=== PATIENT | female | born 1975 | race Caucasian/White ===

== ENCOUNTER 2019-07-20 09:32 | Emergency (ER) | payer SELFPAY ==
[2019-07-20 09:44] VITALS: BP 107/62; PULSE 73; RESP 20; TEMP 36.9; O2SAT 99; BMI 19.2
--- NOTE | 2019-07-20 09:52 | ED_ITS ---
Entered by Abby Hernandez, acting as scribe for Skip Haddad MD HPI - Abdominal Pain General: Chief Complaint: Abdominal Pain Stated Complaint: Abd pain Time Seen by Provider: 07/20/19 09:38 Source: patient Mode of arrival: ambulatory Limitations: no limitations History of Present Illness: HPI narrative: 44 yo female presents with abdomen pain. pt states this started yesterday. pt has had nausea and vomiting. pt stated the pain worsens by eating or movement and nothing makes this better. pt has a HX of bowel obstructions. pt's last bowel movement was 3 days ago. pt denies any other symptoms at this time. MD elicited complaint: abdominal pain Onset (ago): day(s) Pain Consistency: constant Location: Epigastric Severity: moderate Radiation: LLQ, RLQ and epigastric Exacerbating factors: eating and movement Relieving factors: nothing Associated Symptoms: Reports change in bowel habits (3 days ago), nausea and vomiting; Denies chills, dysuria and fever(s) Related Data: Date of Last Menstrual Period: 07/07/19 Review of Systems Const: Denies: fever, chills, body aches or change in appetite Eyes: Denies: blurry vision or eye discomfort ENMT: Denies: throat pain or dental pain Card: Denies: chest pain Resp: Denies: shortness of breath GI: Reports: nausea, vomiting and change in bowel habits (3 days ago) : Denies: painful urination Musc: Denies: neck pain or back pain Skin/Breast: Denies: rash Neuro: Denies: headache Psych: Denies: depression Goldy/Lymph: Denies: easy bruising All/Imm: Denies: hives PFSH ED PFSH: Statuses (acute, chronic, etc) shown below reflect problem list status as previously entered and may not be historically accurate Medical History (Updated 07/20/19 @ 11:33 by Skip Haddad MD) History of small bowel obstruction (Acute) Social History Smoking and tobacco status: current every day smoker Female Reproductive History: Date of last menstrual period: 07/07/19 Physical Exam Const: COMMON NORMALS: no apparent distress, oriented x3 and healthy appearing HENMT: COMMON NORMALS: normocephalic and head/scalp atraumatic HEAD & SCALP: normocephalic and atraumatic Eye: COMMON NORMALS: PERRL and EOMs intact bilaterally PUPIL: Yes PERRL Neck/C-Spine: COMMON NORMALS: full ROM and supple Chest: COMMONS NORMALS: inspection of chest normal and palpation of chest normal Resp: COMMON NORMALS: normal respiratory effort, no retractions, no use of accessory muscles and clear to auscultation bilaterally AUSCULTATION: clear to auscultation bilaterally Cardio: COMMON NORMALS: regular rate, regular rhythm and no murmurs RATE: regular rate RHYTHM: regular rhythm Extremity: COMMON NORMALS: normal to inspection and full ROM Neuro: COMMON NORMALS: oriented x3, moves all extremities and no focal motor deficits Psych: COMMON NORMALS: mental status grossly normal, thought process normal and cooperative THOUGHT PROCESS: normal thought process Skin: COMMON NORMALS: no rashes or lesions noted and no wounds GENERAL SKIN EXAM: no rashes or lesions noted Course Vital Signs: Vital signs: Vital Signs Temperature 98.6 F 07/20/19 11:11 Pulse Rate 75 07/20/19 11:36 Respiratory Rate 14 07/20/19 11:36 Blood Pressure 148/75 07/20/19 11:36 Pulse Oximetry 98 07/20/19 11:36 MDM - Abdominal Pain MDM Narrative: Medical decision making narrative: Patient presents with abdominal pain that is likely reflux. Her pain was resolved with a GI cocktail. Her lab work here is normal and she has no signs of cholecystitis. Patient is stable for discharge and will prescribe her Prilosec. She is to follow-up with her primary care doctor in 3 to 5 days and return if worsening. Lab Data: Labs: Lab Results 07/20/19 07/20/19 07/20/19 Range/Units 09:57 09:57 10:12 WBC 4.9 (4.0-10.0) 10^3/ uL RBC 4.54 (4.1-5.3) 10^6/u L Hgb 13.0 (11.5-15.3) g/dL Hct 40.3 (37.0-47.0) % MCV 88.8 (81-99) fL MCH 28.6 (28.0-34.0) pg MCHC 32.3 (30.0-36.0) g/dL RDW 14.1 (12.1-15.1) % Plt Count 243 (130-400) 10^3/c mm MPV 9.8 (7.4-10.4) fL Neut % (Auto) 56.7 % Lymph % (Auto) 30.8 % Weld % (Auto) 9.3 % Eos % (Auto) 1.4 % Baso % (Auto) 1.6 % Neut # (Auto) 2.8 (1.8-7.7) 10^3/u L Lymph # (Auto) 1.5 (0.8-4.8) 10^3/u L Weld # (Auto) 0.5 (0.2-0.9) 10^3/u L Eos # (Auto) 0.1 (0.0-0.8) 10^3/u L Baso # (Auto) 0.1 (0.0-0.1) 10^3/u L Nucleated RBC % (a uto) 0 % Nucleated RBCs # 0.0 /100WBC Sodium 141 (136-145) mmol/L Potassium 4.1 (3.5-5.1) mmol/L Chloride 105 (98-107) mmol/L Carbon Dioxide 24 (22-29) mmol/L Anion Gap 16.1 (5-19) BUN 17 (6-20) mg/dL Creatinine 0.8 (0.5-0.9) mg/dL GFR Calculation 77.6 L (90-130) mL/min Glucose 98 (74-109) mg/dL Calcium 10.5 (8.5-10.5) mg/dL Total Bilirubin 0.4 (0.15-1.2) mg/dL AST 15 (0-32) U/L ALT 9 (0-33) U/L Alkaline Phosphata se 55 (35-105) IU/L Total Protein 7.8 (6.6-8.7) g/dL Albumin 5.0 (3.5-5.2) g/dL Globulin 2.8 (1.3-4.6) g/dL Lipase 14 (13-60) U/L HCG, Qual Negative (Negative) Urine Color (Yellow) Urine Appearance (CLEAR) Urine pH (5-7) Ur Specific Gravit y (1.005-1.030) Urine Protein (Negative) Urine Glucose (UA) (Normal) Urine Ketones (Negative) Urine Occult Blood (Negative) Urine Nitrate (Negative) Urine Bilirubin (NEGATIVE) Urine Urobilinogen (Negative) mg/dL Ur Leukocyte Mickie ase (Negative) Urine RBC (0-2) /hpf Urine WBC (0-5) /hpf Ur Squamous Epith Cells (0-5) Urine Bacteria (NONE) Hyaline Casts Urine Mucus 07/20/19 Range/Units 10:12 WBC (4.0-10.0) 10^3/ uL RBC (4.1-5.3) 10^6/u L Hgb (11.5-15.3) g/dL Hct (37.0-47.0) % MCV (81-99) fL MCH (28.0-34.0) pg MCHC (30.0-36.0) g/dL RDW (12.1-15.1) % Plt Count (130-400) 10^3/c mm MPV (7.4-10.4) fL Neut % (Auto) % Lymph % (Auto) % Weld % (Auto) % Eos % (Auto) % Baso % (Auto) % Neut # (Auto) (1.8-7.7) 10^3/u L Lymph # (Auto) (0.8-4.8) 10^3/u L Weld # (Auto) (0.2-0.9) 10^3/u L Eos # (Auto) (0.0-0.8) 10^3/u L Baso # (Auto) (0.0-0.1) 10^3/u L Nucleated RBC % (a uto) % Nucleated RBCs # /100WBC Sodium (136-145) mmol/L Potassium (3.5-5.1) mmol/L Chloride (98-107) mmol/L Carbon Dioxide (22-29) mmol/L Anion Gap (5-19) BUN (6-20) mg/dL Creatinine (0.5-0.9) mg/dL GFR Calculation (90-130) mL/min Glucose (74-109) mg/dL Calcium (8.5-10.5) mg/dL Total Bilirubin (0.15-1.2) mg/dL AST (0-32) U/L ALT (0-33) U/L Alkaline Phosphata se (35-105) IU/L Total Protein (6.6-8.7) g/dL Albumin (3.5-5.2) g/dL Globulin (1.3-4.6) g/dL Lipase (13-60) U/L HCG, Qual (Negative) Urine Color Yellow (Yellow) Urine Appearance Sl hazy (CLEAR) Urine pH 5 (5-7) Ur Specific Gravit y 1.020 (1.005-1.030) Urine Protein Neg (Negative) Urine Glucose (UA) Norm (Normal) Urine Ketones 1+ H (Negative) Urine Occult Blood Neg (Negative) Urine Nitrate Negative (Negative) Urine Bilirubin 1+ H (NEGATIVE) Urine Urobilinogen 1 H (Negative) mg/dL Ur Leukocyte Mickie ase 1+ H (Negative) Urine RBC 0-4 H (0-2) /hpf Urine WBC 10-15 H (0-5) /hpf Ur Squamous Epith Cells 15-25 H (0-5) Urine Bacteria 2+ H (NONE) Hyaline Casts Rare Urine Mucus 1+ Discharge Plan Discharge Patient Disposition: Home, Self-Care Clinical Impression: Abdominal pain Qualifiers: Abdominal location: epigastric Qualified Code(s): R10.13 - Epigastric pain Condition: Stable Prescriptions: New Zofran 4 mg tablet 4 mg PO QID PRN (Reason: nausea and vomiting) Qty: 14 RF: 0 Prilosec OTC 20 mg tablet,delayed release (DR/EC) 20 mg PO DAILY Qty: 30 RF: 0 No Action aripiprazole 10 mg tablet 10 mg PO DAILY PRN (Reason: unknown) RF: 0 bupropion HCl 150 mg tablet extended release 24 hr 150 mg PO DAILY PRN (Reason: unknown) RF: 0 melatonin See Rx Instructions .ROUTE .COMPLEX RF: 0 Discharge Orders: Discharge Order (Routine); Ordered 07/20/19 Ordered By: Skip Haddad Discharge Diet: Advance as tolerated Discharge Activity: Resume usual activity Patient Instructions: Abdominal Pain (ED) Stand Alone Forms: Work/School Release Discharge Date/Time: 07/20/19 11:37 Coding Level of Care Code ED Garden Machinery Mechanic for Chg Fwd Exam Problem Focused The documentation recorded by the David st Bridget Annette, accurately reflects the service I personally performed and the decisions made by Boo mckay Korby, MD Jul 20, 2019 09:32
[2019-07-20 10:07] LABS: Basophils # 0.1 10^3/uL (0.0-0.1); Basophils % 1.6 %; Eosinophils # 0.1 10^3/uL (0.0-0.8); Eosinophils % 1.4 %; Hematocrit 40.3 % (37.0-47.0); Lymphocytes # 1.5 10^3/uL (0.8-4.8); Lymphocytes % 30.8 %; Mean Corpuscular HGB Conc 32.3 g/dL (30.0-36.0); Mean Corpuscular Hemoglobin 28.6 pg (28.0-34.0); Mean Corpuscular Volume 88.8 fL (81-99); Mean Platelet Volume 9.8 fL (7.4-10.4); Monocytes # 0.5 10^3/uL (0.2-0.9); Monocytes % 9.3 %; Neutrophils # 2.8 10^3/uL (1.8-7.7); Neutrophils % 56.7 %; Nucleated Red Blood Cells % 0 %; Platelet Count 243 10^3/cmm (130-400); Red Blood Count 4.54 10^6/uL (4.1-5.3); Red Cell Distribution Width 14.1 % (12.1-15.1); White Blood Count 4.9 10^3/uL (4.0-10.0)
[2019-07-20] MEDS: ondansetron 2 mg/ML SDV 2 mL 4 MG IVP (10:08)
--- NOTE | 2019-07-20 10:10 | PC.NURSE ---
Patient to restroom for urine collection
[2019-07-20 10:27] LABS: Alanine Aminotransferase 9 U/L (0-33); Alkaline Phosphatase 55 IU/L (35-105); Anion Gap 16.1 (5-19); Aspartate Amino Transferase 15 U/L (0-32); Blood Urea Nitrogen 17 mg/dL (6-20); Calcium 10.5 mg/dL (8.5-10.5); Carbon Dioxide 24 mmol/L (22-29); Chloride 105 mmol/L (98-107); Globulin 2.8 g/dL (1.3-4.6); Glomerular Filtration Rate 77.6 mL/min (90-130); Glucose 98 mg/dL (74-109); Lipase 14 U/L (13-60); Potassium 4.1 mmol/L (3.5-5.1); Sodium 141 mmol/L (136-145); Total Bilirubin 0.4 mg/dL (0.15-1.2); Total Protein 7.8 g/dL (6.6-8.7)
[2019-07-20 10:49] LABS: HCG Qualitative Urine. Negative (Negative)
[2019-07-20 10:58] LABS: Add Urine Microscopic? YES; Bilirubin Urine 1+ (NEGATIVE); Blood Urine Neg (Negative); Glucose Urine UA Norm (Normal); Ketones Urine 1+ (Negative); Leukocyte Esterase Urine 1+ (Negative); Nitrate Urine Negative (Negative); Protein Urine Neg (Negative); Urine Appearance SL Hazy (CLEAR); Urine Color Yellow (Yellow); Urobilinogen Urine 1 mg/dL (Negative); pH Urine 5 (5-7)
[2019-07-20 11:10] LABS: Hyaline Casts Urine RARE; Mucus Urine 1+
[2019-07-20 11:11] VITALS: BP 100/68; PULSE 66; TEMP 37; O2SAT 99
[2019-07-20 11:11] LABS: Bacteria Urine 2+; RBC Urine 0-4 /hpf (0-2); Squamous Epithelial Cell Urine 15-25 (0-5)
[2019-07-20 11:12] LABS: Add Urine Culture? No
[2019-07-20 11:36] VITALS: BP 148/75; PULSE 75; RESP 14; O2SAT 98
== END 2019-07-20 11:37 | disposition home or self-care (01) ==
PROVIDERS: Emergency Provider Emergency Medicine
DX: R10.13 Epigastric pain (principal); F17.210 Nicotine dependence, cigarettes, uncomplicated
CPT/HCPCS: 36415; 80053; 81001; 81025; 83690; 85025; 96374; 99282; 99283; J2405

== ENCOUNTER 2021-12-26 10:37 | Emergency (ER) | payer BC, MEDICAID, SELFPAY ==
[2021-12-26 10:53] VITALS: BP 97/65; PULSE 98; RESP 18; TEMP 36.7; O2SAT 98; BMI 19.8
--- NOTE | 2021-12-26 11:18 | CTR_ITS ---
PROCEDURE INFORMATION: Exam: CT Head Without Contrast Exam date and time: 12/26/2021 12:07 PM Age: 46 years old Clinical indication: Injury or trauma; Fall; Blunt trauma (contusions or hematomas) TECHNIQUE: Imaging protocol: Computed tomography of the head without contrast. Radiation optimization: All CT scans at this facility use at least one of these dose optimization techniques: automated exposure control; mA and/or kV adjustment per patient size (includes targeted exams where dose is matched to clinical indication); or iterative reconstruction. COMPARISON: No relevant prior studies available. RADIATION DOSE METRICS: Total DLP (mGy-cm): 1103.8 FINDINGS: Brain: Normal. No hemorrhage. Unremarkable white matter. No mass effect. Cerebral ventricles: No ventriculomegaly. Paranasal sinuses: Visualized sinuses are unremarkable. No fluid levels. Mastoid air cells: Visualized mastoid air cells are well aerated. Bones/joints: Unremarkable. No acute fracture. Soft tissues: Unremarkable. CT/CT head wo con* [id number] IMPRESSION: No acute intracranial abnormality.
[2021-12-26 11:34] LABS: Basophils # 0.1 10^3/uL (0.0-0.1); Basophils % 1.2 %; Eosinophils % 0.7 %; Hematocrit 38.1 % (37.0-47.0); Hemoglobin 12.4 g/dL (11.5-15.3); Lymphocytes # 1.2 10^3/uL (0.8-4.8); Lymphocytes % 21.4 %; Mean Corpuscular HGB Conc 32.5 g/dL (30.0-36.0); Mean Corpuscular Hemoglobin 28.2 pg (28.0-34.0); Mean Corpuscular Volume 86.8 fl (81-99); Monocytes # 0.5 10^3/uL (0.2-0.9); Neutrophils # 3.88 10^3/uL (1.8-7.7); Neutrophils % 68.5 %; Nucleated Red Blood Cells % 0 %; Platelet Count 220 10^3/cmm (130-400); Red Blood Count 4.39 10^6/uL (4.1-5.3); Red Cell Distribution Width 14.9 % (12.1-15.1); White Blood Count 5.7 10^3/uL (4.0-10.0)
[2021-12-26 11:51] VITALS: BP 104/68; BP 107/71; BP 113/63; PULSE 72; PULSE 73; PULSE 82
[2021-12-26] MEDS: sodium chloride 0.9% 1,000 ML 999 ML IV ×2 (11:51→15:40)
[2021-12-26 11:59] LABS: Alanine Aminotransferase < 5 U/L (0-33); Albumin Level 4.3 g/dL (3.5-5.2); Alkaline Phosphatase 54 IU/L (35-105); Anion Gap 16.4 (5-19); Aspartate Amino Transferase 10 U/L (0-32); Blood Urea Nitrogen 16 mg/dL (6-20); Calcium 9.3 mg/dL (8.5-10.5); Carbon Dioxide 20 mmol/L (22-29); Chloride 104 mmol/L (98-107); Globulin 2.7 g/dL (1.3-4.6); Glomerular Filtration Rate 107.2 mL/min (90-130); Glucose 79 mg/dL (65-115); Lipase 13 U/L (13-60); Osmolality Calculated 284 mOsm/kg (285-295); Potassium 3.4 mmol/L (3.5-5.1); Sodium 137 mmol/L (136-145); Total Bilirubin 0.4 mg/dL (0.15-1.2)
[2021-12-26 12:00] LABS: Troponin(5th) Baseline 6 ng/L (0-10)
--- NOTE | 2021-12-26 12:02 | W.ED.GENADLT ---
HPI - General Adult General: Chief complaint: Syncope Stated complaint: SYNCOPE; FALL Time Seen by Provider: 12/26/21 11:14 History of Present Illness: Patient is a 46-year-old female without any significant past medical history presents emergency room for an episode of syncope which occurred about an hour ago. Patient tells me that since Monday she has been outside in the heat has been feeling lightheaded. Earlier today, patient was walking in the living room when she suddenly passed out. Patient felt palpitation prior to passing out. Patient denies any nausea or vomiting, chest pain, shortness of breath, focal neurological deficits. Patient complains of generalized weakness all over. Patient reports mild cough since earlier today. Patient has no family history of sudden cardiac or history of aneurysm. Patient denies any headache, decreased p.o. intake, diarrhea, melena or hematochezia. No prior history of anemia or syncope in the past. Patient tells me that she found herself on the ground and cannot remember whether she injured her head. The episode of syncope was unwitnessed. Onset: 1 hr ago Duration:once Location:home Severity:moderate Associated symptoms: Reports malaise and palpitations; Deny chest pain, dyspnea, nausea, rash or vomiting Review of Systems Const: Reports: fatigue, malaise and other (+generalized weakness); Denies: fever(s) or chills Eyes: Denies: change in vision ENMT: Denies: mouth pain Card: Reports: palpitations; Denies: chest pain Resp: Denies: dyspnea or non-productive cough GI: Denies: abdominal pain, nausea, vomiting or diarrhea : Denies: dysuria Musc: Denies: extremity pain Skin/Breast: Denies: rash or new lesions Neuro: Reports: other (+syncope and collapse); Denies: weakness in extremities Psych: Reports: other (Normal mood) Goldy/Lymph: Denies: easy bruising PFSH ED PFSH: Medical History History of small bowel obstruction Social History Smoking and tobacco status: current every day smoker cigarettes Years cigarettes smoked: 25 Quit status (tobacco): considering quitting Second hand smoke exposure: Yes Smoking risk assessment/counseling performed?: Yes Tobacco counseling given: counseling >3 minutes Female Reproductive History: Date of last menstrual period: 07/07/19 Physical Exam Const: COMMON NORMALS: alert HENMT: COMMON NORMALS: atraumatic HEAD & SCALP: atraumatic MOUTH: moist mucous membranes not abnormal Eye: COMMON NORMALS: EOMs intact bilaterally and conjunctivae normal CONJUNCTIVA: Yes conjunctivae normal Neck/C-Spine: COMMON NORMALS: full ROM and supple Resp: COMMON NORMALS: normal respiratory effort and clear to auscultation bilaterally AUSCULTATION: clear to auscultation bilaterally Cardio: COMMON NORMALS: regular rate RATE: regular rate GI: COMMON NORMALS: Soft to palpation and non-tender PALPATION: Yes Soft to palpation OTHER: No focal TTP. NO guarding rebound, guarding, rigidity. No CVA tenderness to percussion. Neg Bazan/Neg McBurney's point tenderness, no suprabupic tenderness to palpation. Extremity: COMMON NORMALS: full ROM Neuro: SENSORIUM/ORIENTATION: Yes alert MOTOR EXAM: No Abnormal motor strength present and Other motor observations present (no focal motor deficits) Psych: COMMON NORMALS: speech normal SPEECH: Yes normal speech MOOD & AFFECT: Yes euthymic mood Course Vital Signs: Vital signs: Vital Signs Temperature 98.0 F 12/26/21 10:53 Pulse Rate 65 12/26/21 13:29 Respiratory Rate 18 12/26/21 13:29 Blood Pressure 97/53 12/26/21 13:29 Pulse Oximetry 99 12/26/21 13:29 MDM - General Adult Medical Decision Making []yo patient w/ no PMH presenting to the ED with Syncope in the setting of being out in the sun x 5 days. No association with chest pain, dyspnea, palpitations, or focal neurological deficits. HDS Neuro intact. Fingerstick wnl. Given history, exam and workup, presentation not consistent with seizures given a short time course, no postictal state, no seizure activity. Low suspicion for acute neurologic catastrophes to include ICH given lack of trauma, risk factors for bleeding diathesis, or neurogenic causes of syncope. Low suspicion for vascular catastrophes to include PE, thoracic aortic dissection, AAA rupture. Presentation not consistent with acute life threatening arrhythmia, structural heart disease, electrical conduction abnormalities, or ACS. Workup: EKG, fingerstick, orthostatics, HCG, CBC, CMP, Lipase, UA Intervention: Serial reevaluation, telemetry, PO challenge Findings: EKG: No e/o STEMI. No evidence of Brugada?s sign, delta wave, epsilon wave, significantly prolonged QTc, HOCM or malignant arrhythmia. [2:30pm] On reassessment, patient denies any syncope or near syncope episodes in the ER. Telemetry without any dysrhythmia. Patient has been able to tolerate PO and ambulate in the ER without issues. Given age, limited to no comorbidities, no family hx of SCD, history more consistent with situational/reflex syncope vs orthostatic/decreased fluid intake, patient is unlikely to experience sudden cardiac decompensation at this time and will NOT benefit from inpatient observation/telemetry at this time. Although the incidence of paroxysmal ventricular tachycardia/VF is very unlikely, I instructed the patient to follow up with a PCP and a Academic Success Coordinator for further evaluation of syncope should the patient need it. Disposition: Discharge. Patient is at baseline at this time. Return precautions expressed and understood in person. Advised follow up with a primary care provider or clinic physician in the next 24-48 hours. Given return instructions for any new or concerning symptoms including chest pain, focal neurological deficits, dyspnea, or any new or concerning findings. Lab Data : 12/26/21 11:25 12/26/21 11:[address] 12/26/21 11:18 IMPRESSION: No acute intracranial abnormality. Laboratory Results WBC 5.7 10^3/uL (4.0-10.0) 12/26/21 11:25 RBC 4.39 10^6/uL (4.1-5.3) 12/26/21 11:25 Hgb 12.4 g/dL (11.5-15.3) 12/26/21 11:25 Hct 38.1 % (37.0-47.0) 12/26/21 11:25 MCV 86.8 fl (81-99) 12/26/21 11:25 MCH 28.2 pg (28.0-34.0) 12/26/21 11:25 MCHC 32.5 g/dL (30.0-36.0) 12/26/21 11:25 RDW 14.9 % (12.1-15.1) 12/26/21 11:25 Plt Count 220 10^3/cmm (130-400) 12/26/21 11:25 MPV 10.0 fL (7.4-10.4) 12/26/21 11:25 Neut % (Auto) 68.5 % 12/26/21 11:25 Lymph % (Auto) 21.4 % 12/26/21 11:25 Dane % (Auto) 8.0 % 12/26/21 11:25 Eos % (Auto) 0.7 % 12/26/21 11:25 Baso % (Auto) 1.2 % 12/26/21 11:25 Neut # (Auto) 3.88 10^3/uL (1.8-7.7) 12/26/21 11:25 Lymph # (Auto) 1.2 10^3/uL (0.8-4.8) 12/26/21 11:25 Dane # (Auto) 0.5 10^3/uL (0.2-0.9) 12/26/21 11:25 Eos # (Auto) 0.0 10^3/uL (0.0-0.8) 12/26/21 11:25 Baso # (Auto) 0.1 10^3/uL (0.0-0.1) 12/26/21 11:25 Nucleated RBC % (auto) 0 % 12/26/21 11:25 Nucleated RBCs # 0.0 /100WBC 12/26/21 11:25 Sodium 137 mmol/L (136-145) 12/26/21 11:25 Potassium 3.4 mmol/L (3.5-5.1) L 12/26/21 11:25 Chloride 104 mmol/L (98-107) 12/26/21 11:25 Carbon Dioxide 20 mmol/L (22-29) L 12/26/21 11:25 Anion Gap 16.4 (5-19) 12/26/21 11:25 BUN 16 mg/dL (6-20) 12/26/21 11:25 Creatinine 0.6 mg/dL (0.5-0.9) 12/26/21 11:25 GFR Calculation 107.2 mL/min (90-130) 12/26/21 11:25 Glucose 79 mg/dL (65-115) 12/26/21 11:25 Calculated Osmolality 284 mOsm/kg (285-295) L 12/26/21 11:25 Calcium 9.3 mg/dL (8.5-10.5) 12/26/21 11:25 Total Bilirubin 0.4 mg/dL (0.15-1.2) 12/26/21 11:25 AST 10 U/L (0-32) 12/26/21 11:25 ALT < 5 U/L (0-33) 12/26/21 11:25 Alkaline Phosphatase 54 IU/L (35-105) 12/26/21 11:25 Troponin T Baseline 6 ng/L (0-10) 12/26/21 11:25 Troponin T 120 Minute 6.00 ng/L (0-10) 12/26/21 13:01 Delta Troponin T 0 ABS# (0-10) 12/26/21 13:01 Total Protein 7.0 g/dL (6.6-8.7) 12/26/21 11:25 Albumin 4.3 g/dL (3.5-5.2) 12/26/21 11:25 Globulin 2.7 g/dL (1.3-4.6) 12/26/21 11:25 Lipase 13 U/L (13-60) 12/26/21 11:25 HCG, Qual Negative (Negative) 12/26/21 14:32 Imaging Data Other Imaging: Radiologist's impression: Launch?Image [address] [address] [address] Scan Report Signed Patient: Shanae Quispe Unit #: [id number] : 1975 Age/Sex: 46 / F ADM Date: 12/26/21 Loc: ER Room/Bed: Attending Dr: Ordering Provider/Ordering MD: Stacy Guy MD Date of Service: 12/26/21 Procedure(s): CT head wo con* [id number] Accession Number(s): [id number] Report Number: [id number] PROCEDURE INFORMATION: Exam: CT Head Without Contrast Exam date and time: 12/26/2021 12:07 PM Age: 46 years old Clinical indication: Injury or trauma; Fall; Blunt trauma (contusions or hematomas) TECHNIQUE: Imaging protocol: Computed tomography of the head without contrast. Radiation optimization: All CT scans at this facility use at least one of these dose optimization techniques: automated exposure control; mA and/or kV adjustment per patient size (includes targeted exams where dose is matched to clinical indication); or iterative reconstruction. COMPARISON: No relevant prior studies available. RADIATION DOSE METRICS: Total DLP (mGy-cm): 1103.8 FINDINGS: Brain: Normal. No hemorrhage. Unremarkable white matter. No mass effect. Cerebral ventricles: No ventriculomegaly. Paranasal sinuses: Visualized sinuses are unremarkable. No fluid levels. Mastoid air cells: Visualized mastoid air cells are well aerated. Bones/joints: Unremarkable. No acute fracture. Soft tissues: Unremarkable. CT/CT head wo con* [id number] IMPRESSION: No acute intracranial abnormality. ? Dictated By: Jeannine Teran MD Signed By: Jeannine Teran MD Signed Date/Time: 12/26/21 1256 DD/ 1207 Discharge Plan Discharge Patient Disposition: Home Clinical Impression: Syncope and collapse Condition: Stable Prescriptions: No Action ibuprofen 200 mg tablet 200 mg PO DAILY PRN0RF melatonin See Rx Instructions .ROUTE .COMPLEX 0RF Rx Instructions: 2 GUMMIES PO HS PRN PT IS UNSURE OF MG Zofran 4 mg tablet 4 mg PO QID PRN (Reason: nausea and vomiting) Qty: 14 0RF Prilosec OTC 20 mg tablet,delayed release (DR/EC) 20 mg PO DAILY Qty: 30 0RF Discharge Orders: Discharge ED (Routine); Ordered 12/26/21 Ordered By: Stacy Guy Discharge Diet: Advance as tolerated Discharge Activity: Increase activity as tolerated Activity Restrictions/Additional Instructions: Please come back to the emergency room for any more breakthrough episodes of passing out. Come back if any weakness in her arms, drooling, difficulty speaking, any neurological symptoms, chest pain/shortness of breath/palpitation or any new or concerning issues. Please do not swim, bathe, operate heavy machinery or drive a vehicle unattended. Coding Level of Care Code ED State Editor for Chg Fwd Exam Comprehensive
--- NOTE | 2021-12-26 13:14 | ECG_ITS ---
[facility] Test Date: 2021-12-26 Pat Name: Shanae Quispe Department: Room: Gender: Female Social Worker School: : 1975 Requested By: Stacy Guy Order Number: [id number] Venus MD: Ganesh Steiner M.D. Measurements Intervals [place] Rate: 65 P: 86 DE: 142 QRS: 73 QRSD: 93 T: 78 QT: 439 QTc: 459 Interpretive Statements SINUS RHYTHM Compared to ECG 04/29/2019 02:28:47 No significant changes Electronically Signed On 12-26-2021 23:42:11 CDT by Ganesh Steiner M.D. [id number]
[2021-12-26 13:29] VITALS: BP 97/53; PULSE 65; RESP 18; O2SAT 99
[2021-12-26 14:11] LABS: Troponin 5 2HR Delta 0 ABS# (0-10)
[2021-12-26 15:50] LABS: HCG, Serum Qual Negative (Negative)
== END 2021-12-26 18:28 | disposition home or self-care (01) ==
PROVIDERS: Emergency Provider Emergency Medicine
DX: R55 Syncope and collapse (principal); F17.210 Nicotine dependence, cigarettes, uncomplicated
CPT/HCPCS: 70450; 80053; 83690; 84484; 84703; 85025; 93005; 96360; 96361; 99285; J7030